=== PATIENT | male | born 1985 | race Caucasian/White ===

== ENCOUNTER 2017-09-15 18:47 | Emergency (ER) | payer OTHER ==
[2017-09-15] MEDS ORDERED: Ketorolac INJ* 30 MG/ML 1 ML VIAL IV PUSH ONE (20:46)
[2017-09-15 21:02] LABS: ABS Basophils 0 10^3/ul (0-0.2); ABS Eosinophils 0.1 10^3/ul (0-0.6); ABS Lymphocytes 1.6 10^3/ul (1.0-4.8); ABS Neutrophils 3.8 10^3/ul (1.5-7.7); ABS Nucleated RBC 0 10^3/ul; Hematocrit 39 % (42-52); Hemoglobin 13.7 g/dl (14.0-18.0); Lymphocyte % 24.6 % (25-47); Mean Corpuscular HGB Conc 35 g/dl (31-36); Mean Corpuscular Hemoglobin 29 pg (27-31); Mean Corpuscular Volume 84 fL (80-94); Mean Platelet Volume 7.5 um3 (7.4-10.4); Nucleated Red Blood Cells % 0.1; Platelet Count 218 10^3/ul (150-450); Red Blood Count 4.67 10^6/ul (4.0-5.4); Red Cell Distribution Width 14 % (10.5-15); White Blood Count 6.6 10^3/ul (3.5-10.8)
[2017-09-15 21:18] LABS: EGFR Non-African American 98.4 (>60)
[2017-09-15] MEDS ORDERED: Potassium Chlor TAB* 20 MEQ TAB.ER PO ONE (21:29)
--- NOTE | 2017-09-15 21:33 | RAD ---
HISTORY: Chest pain COMPARISONS: April 02, 2015 VIEWS: 1: frontal portable view of the chest at 9:23 PM FINDINGS: LINES AND TUBES: None. CARDIOMEDIASTINAL SILHOUETTE: The cardiomediastinal silhouette is normal for portable technique. PLEURA: The costophrenic angles are sharp. No pleural abnormalities are noted. LUNG PARENCHYMA: The lungs are clear. ABDOMEN: The upper abdomen is clear. There is no subphrenic gas. BONES AND SOFT TISSUES: No bone or soft tissue abnormalities are noted. IMPRESSION: NO ACTIVE CARDIOPULMONARY DISEASE.
[2017-09-15 21:58] VITALS: BP 126/65
--- NOTE | 2017-09-16 21:20 | ED ---
Akin Reyna Rebecca, scribed for Bruce Roman MD on 09/15/17 at 2043 . HPI Chest Pain - HPI Summary HPI Summary: Pt is a 31 y/o M who presents to ED c/o CP. Pain began last night after he had been laying down for about 30-45 minutes. Located in the sternal region, it gradually worsened, then began radiating into the left arm and right jaw. For about a half an hour, the pain was severe, ranked 10/10. He took 3 ASA. Pain gradually decreased and had been intermittent until 1100 today. Since 1100, the pain has been barely present, described more as a pressure, rated 1-2/10. Additionally c/o dizziness and diaphoresis last night when the pain began. Notes SOB recently. No prior similar episodes and has never had CP on exertion. No PMHx and no FHx [place]<55y/o. 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 - History of Current Complaint Chief Complaint: EDChestPainROMI Time Seen by Provider: 09/15/17 20:36 Hx Obtained From: Patient Onset/Duration: Started Days Ago - Last night Initial Severity: Severe - 10/10 Current Severity: Mild Pain Intensity: 2 Pain Scale Used: 0-10 Numeric Chest Pain Location: Mid Sternal Chest Pain Radiates: Yes Chest Pain Radiates To:: Arm - Left, Jaw - Right Character: Pressure/Squeezing Aggravating Factor(s): Nothing Alleviating Factor(s): Nothing Associated Signs and Symptoms: Positive: Dizziness, Shortness of Breath, Diaphoresis - Allergy/Home Medications Allergies/Adverse Reactions: Allergies Allergy/AdvReac Type Severity Reaction Status Date / Time No Known Allergies Allergy Verified 04/02/15 18:14 Home Medications: Home Medications NK [No Home Medications Reported] 09/15/17 [History Confirmed 09/15/17] PMH/Surg Hx/FS Hx/Imm Hx Endocrine/Hematology History: Denies: Hx Diabetes Cardiovascular History: Denies: Hx Hypertension - Immunization History Date of Tetanus Vaccine: UNKNOWN Infectious Disease History: No Infectious Disease History: Denies: Traveled Outside the US in Last 30 Days - Family History Known Family History: Positive: Diabetes - Social History Alcohol Use: None Substance Use Type: Reports: None Smoking Status (MU): Never Smoked Tobacco Review of Systems Positive: Skin Diaphoresis Positive: Chest Pain Positive: Shortness Of Breath Neurological: Other - Dizziness All Other Systems Reviewed And Are Negative: Yes Physical Exam - Summary Physical Exam Summary: VITAL SIGNS: Reviewed. GENERAL: Patient is a well-developed and nourished male who is lying comfortable in the stretcher. Patient is not in any acute respiratory distress. HEAD AND FACE: No signs of trauma. No ecchymosis, hematomas or skull depressions. No sinus tenderness. EYES: PERRLA, EOMI x 2, No injected conjunctiva, no nystagmus. EARS: Hearing grossly intact. Ear canals and tympanic membranes are within normal limits. MOUTH: Oropharynx within normal limits. NECK: Supple, trachea is midline, no adenopathy, no JVD, no carotid bruit, no c- spine tenderness, neck with full ROM. CHEST: Symmetric, no tenderness at palpation LUNGS: Clear to auscultation bilaterally. No wheezing or crackles. CVS: Regular rate and rhythm, S1 and S2 present, no murmurs or gallops appreciated. ABDOMEN: Soft, non-tender. No signs of distention. No rebound no guarding, and no masses palpated. Bowel sounds are normal. EXTREMITIES: FROM in all major joints, no edema, no cyanosis or clubbing. NEURO: Alert and oriented x 3. No acute neurological deficits. Speech is normal and follows commands. SKIN: Dry and warm Triage Information Reviewed: Yes Vital Signs On Initial Exam: Initial Vitals Temp Pulse Resp BP Pulse Ox 98.2 F 61 20 145/85 98 09/15/17 19:11 09/15/17 19:11 09/15/17 19:11 09/15/17 19:11 09/15/17 19:11 Vital Signs Reviewed: Yes Diagnostics - Vital Signs Vital Signs Temp Pulse Resp BP Pulse Ox 09/15/17 20:16 57 18 127/74 95 09/15/17 19:11 98.2 F 61 20 145/85 98 - Laboratory Lab Results: Lab Results 09/15/17 09/15/17 09/15/17 Range/Units 20:51 20:51 20:51 WBC 6.6 (3.5-10.8) 10^3/ul RBC 4.67 (4.0-5.4) 10^6/ul Hgb 13.7 L (14.0-18.0) g/dl Hct 39 L (42-52) % MCV 84 (80-94) fL MCH 29 (27-31) pg MCHC 35 (31-36) g/dl RDW 14 (10.5-15) % Plt Count 218 (150-450) 10^3/ul MPV 7.5 (7.4-10.4) um3 Neut % (Auto) 57.6 (38-83) % Lymph % (Auto) 24.6 L (25-47) % Wilcox % (Auto) 15.1 H (0-7) % Eos % (Auto) 2.0 (0-6) % Baso % (Auto) 0.7 (0-2) % Absolute Neuts (auto) 3.8 (1.5-7.7) 10^3/ul Absolute Lymphs (auto) 1.6 (1.0-4.8) 10^3/ul Absolute Monos (auto) 1.0 H (0-0.8) 10^3/ul Absolute Eos (auto) 0.1 (0-0.6) 10^3/ul Absolute Basos (auto) 0 (0-0.2) 10^3/ul Absolute Nucleated RBC 0 10^3/ul Nucleated RBC % 0.1 D-Dimer, Quantitative < 200 (Less Than 230) ng/mL Sodium 137 L (139-145) mmol/L Potassium 3.4 L (3.5-5.0) mmol/L Chloride 102 (101-111) mmol/L Carbon Dioxide 29 (22-32) mmol/L Anion Gap 6 (2-11) mmol/L BUN 14 (6-24) mg/dL Creatinine 0.89 (0.67-1.17) mg/dL Est GFR ( Amer) 126.6 (>60) Est GFR (Non-Af Amer) 98.4 (>60) BUN/Creatinine Ratio 15.7 (8-20) Glucose 97 (70-100) mg/dL Calcium 8.5 L (8.6-10.3) mg/dL Total Bilirubin 0.70 (0.2-1.0) mg/dL AST 19 (13-39) U/L ALT 15 (7-52) U/L Alkaline Phosphatase 63 (34-104) U/L Troponin I 0.03 (<0.04) ng/mL Total Protein 7.0 (6.4-8.9) g/dL Albumin 4.0 (3.2-5.2) g/dL Globulin 3.0 (2-4) g/dL Albumin/Globulin Ratio 1.3 (1-3) Result Diagrams: 09/15/17 20:51 09/15/17 20:51 Lab Statement: Any lab studies that have been ordered have been reviewed, and results considered in the medical decision making process. - Radiology CXR Xray Interpretation: No Acute Changes - NO ACTIVE CARDIOPULMONARY DISEASE. ED physician reviewed this report. Radiology Interpretation Completed By: Radiologist - EKG 2055 Cardiac Rate: Bradycardia - 53 bpm EKG Rhythm: Sinus Bradycardia EKG Interpretation: No ST elevations Re-Evaluation - Re-Evaluation First Eval Re-Evaluation Time: 21:35 Comment: Sleeping comfortably. Discussed results with the pt. Chest Pain Course/Dx - Course Assessment/Plan: This patient is a 31-year-old male who presents to the emergency department with a chief complaint of having chest pain and the side of the chest yesterday. Today he reports that he has a slight discomfort but no pain. Patient has no past medical history or family history of coronary artery disease. Patient has no comorbidities. Patient was given Toradol for the pain. Blood tests without any significant abnormalities except for a slight normocytic normochromic anemia. D-dimer is less than 200, sodium 137 and potassium 3.4. The patient was given potassium chloride. Chest x-ray impression negative an acute cardiopulmonary disease. The patient continues to be asymptomatic. Since the patient has no comorbidities or family history of coronary disease and the blood tests are negative the patient will be discharged home with follow-up with primary care physician. I discussed all the findings and test results with the patient. Patient was instructed to return to the emergency room immediately if any of the symptoms return or worsens. Plan of care was discussed with the patient and understands and agrees. All questions were answered at patient satisfaction. There were no further complaints or concerns. Lung exam before discharge: CTA B/L. Good air exchange. No wheezing or crackles heard. CVS: S1 and S2 present. No murmurs appreciated. Patient is alert and oriented x 3. Patient is hemodynamically stable. Patient will be discharged home with follow up PCP in the next 2-3 days - Chest Pain Differential Diagnosis/HQI/PQRI: Acute [place], ACS, Angina, CHF, Chest Wall, GI Disease, Lower Respiratory Infection - Diagnoses Provider Diagnoses: Chest pain, localized, Chest pain, atypical Discharge - Sign-Out/Discharge Documenting (check all that apply): Discharge/Admit/Transfer - Discharge - Discharge Plan Condition: Stable Disposition: HOME Patient Education Materials: Chest Pain (ED) Referrals: No Primary Care Phys,NOPCP [Primary Care Provider] - [facility] [place] PHYSICIAN REFERRAL [Outside] - 3 Days Additional Instructions: RETURN TO ED FOR ANY NEW OR WORSENING SYMPTOMS. The documentation as recorded by the Akin amezquita Rebecca accurately reflects the service I personally performed and the decisions made by Abel rosales Walter, MD.
== END 2017-09-15 21:58 | disposition home or self-care (01) ==
LOC: ED 18:47
DX: R07.89 Other chest pain (principal); D64.9 Anemia, unspecified
CPT/HCPCS: 36415; 71045; 80053; 84484; 85025; 85379; 93005; 96374; 99282; J1885

== ENCOUNTER 2018-02-06 20:18 | Observation (INO) | payer OTHER ==
[2018-02-06] MEDS ORDERED: Acetaminophen TAB* 325 MG PO ONE (20:26)
[2018-02-06] MEDS ORDERED: NS 0.9% 1000 ML* 1,000 ML IV ONE ×2 (20:26→22:40)
[2018-02-06 20:59] LABS: ABS Basophils 0 10^3/ul (0-0.2); ABS Eosinophils 0 10^3/ul (0-0.6); ABS Lymphocytes 0.5 10^3/ul (1.0-4.8); ABS Monocytes 0.8 10^3/ul (0-0.8); ABS Neutrophils 6.4 10^3/ul (1.5-7.7); ABS Nucleated RBC 0 10^3/ul; Eosinophil % 0 % (0-6); Hematocrit 46 % (42-52); Hemoglobin 16.2 g/dl (14.0-18.0); Lymphocyte % 6.8 % (25-47); Mean Corpuscular HGB Conc 35 g/dl (31-36); Mean Corpuscular Hemoglobin 29 pg (27-31); Mean Corpuscular Volume 84 fL (80-94); Mean Platelet Volume 7.7 um3 (7.4-10.4); Nucleated Red Blood Cells % 0.3; Platelet Count 205 10^3/ul (150-450); Red Blood Count 5.55 10^6/ul (4.00-5.40); Red Cell Distribution Width 13 % (10.5-15); White Blood Count 7.8 10^3/ul (3.5-10.8)
[2018-02-06 21:12] LABS: INR 1.11 (0.77-1.02)
--- NOTE | 2018-02-06 21:14 | ED ---
Neurological HPI - HPI Summary HPI Summary: A 32 y/o male accompanied by his JAMA presents to ED c/o s/p syncope and pain reaching 10/10 in severity. In the ED room, the patient has a pulse of 73 BPM, O2 saturation of 97% and blood pressure of 141/64. As per triage, "32 M JAMA for syncope and fall to the head. Was found unresponsive on the floor by a spouse. (unkown time) c/o of OCHOA, nausea. (3 days ago pt had piece of wood hit his head. It had nail on it). Fever noted in the ER". As per , the patient was hit on the top of his head by a piece of wood that had a avinash nail approximately 2-3 days ago. The nail did lopez the skin on top of his head. however, it was unknown of its depth (was bloody). Ever since the accident, the patient has been experiencing headaches intermittently and more than usual. She noted that after spending a normal day at the [employer], during departure he stated that he had a headache and felt that his heart was racing. Earlier in the day he took Ibuprofen as he slammed his finger in a door previously. She noted that after the mall trip, the patient was weak, fatigued and had a fever of 99.7. After leaving him at the house for some time, he was found on the kitchen floor passed out near the refrigerator. The patient was wet and he looked very pale and was diaphoretic. The timing of his syncope is unknown. Upon EMS arrival, the patient started to return to his senses. As per patient, he has nausea, diffuse myalgia and back pain, denies vomiting, abdominal pain, photophobia. No known medical conditions. PMHx of LOC. FHx of DM. No allergies to medications. Tetnus shot is up to date. Son currently has strep throat. - History of Current Complaint Chief Complaint: EDSyncope Stated Complaint: SYNCOPE Time Seen by Provider: 02/06/18 20:29 Hx Obtained From: Patient Onset/Duration: Sudden Onset, Started days ago, Still Present Timing: Constant Onset Severity: Severe - 10/10 Current Severity: Severe - 10/10 Number of Seizures: 0 Headache Location: Frontal Pain Intensity: 10 Pain Scale Used: 0-10 Numeric Syncope Timing: UNKNOWN Syncope Context: Unwitnessed, Unknown Aggravating: Nothing Alleviating: Nothing Associated Signs and Symptoms: Positive: Headache, Loss of Consciousness, Pain, Nausea/Vomiting - NAUSEA, Fever, Trauma: Recent - Allergy/Home Medications Allergies/Adverse Reactions: Allergies Allergy/AdvReac Type Severity Reaction Status Date / Time No Known Allergies Allergy Verified 04/02/15 18:14 PMH/Surg Hx/FS Hx/Imm Hx Endocrine/Hematology History: Denies: Hx Diabetes Cardiovascular History: Denies: Hx Hypertension - Surgical History Surgery Procedure, Year, and Place: Vasectomy, MCL and meniscus. - Immunization History Date of Tetanus Vaccine: UNKNOWN Infectious Disease History: No Infectious Disease History: Denies: Traveled Outside the US in Last 30 Days - Family History Known Family History: Positive: Diabetes - Social History Alcohol Use: None Substance Use Type: Reports: None Smoking Status (MU): Never Smoked Tobacco Review of Systems Positive: Fever, Fatigue, Skin Diaphoresis Negative: Photophobia Positive: Nausea. Negative: Abdominal Pain, Vomiting Positive: Myalgia, Other - POSITIVE: Back pain Neurological: Other - POSITIVE: Syncope/LOC Positive: Headache, Weakness All Other Systems Reviewed And Are Negative: Yes Physical Exam - Summary Physical Exam Summary: GENERAL: Patient is a well-developed and nourished male who is lying comfortable in the stretcher. Patient is not in any acute respiratory distress. HEAD AND FACE: Normocephalic EYES: PERRLA, EOMI x 2. EARS: Hearing grossly intact. MOUTH: Oropharynx within normal limits. NECK: Supple, trachea is midline, no adenopathy, no JVD, no carotid bruit. CHEST: Symmetric, no tenderness at palpation LUNGS: Clear to auscultation bilaterally. No wheezing or crackles. CVS: Regular rate and rhythm, S1 and S2 present, no murmurs or gallops appreciated. ABDOMEN: Soft, non-tender. Bowel sounds are normal. No abdominal abnormal pulsations. EXTREMITIES: Full ROM in all major joints, no edema, no cyanosis or clubbing. NEURO: Alert and oriented x 3. No acute neurological deficits. Speech is normal and follows commands. SKIN: Puncture wound in frontal lobe area, no surrounding erythema. GCS: 15 Triage Information Reviewed: Yes Vital Signs On Initial Exam: Initial Vitals Temp Pulse Resp BP Pulse Ox 102.8 F 78 18 127/76 99 02/06/18 20:20 02/06/18 20:20 02/06/18 20:20 02/06/18 20:20 02/06/18 20:20 Vital Signs Reviewed: Yes Diagnostics - Vital Signs Vital Signs Temp Pulse Resp BP Pulse Ox 02/06/18 20:55 72 19 141/64 97 02/06/18 20:25 73 14 152/72 98 02/06/18 20:24 78 17 98 02/06/18 20:20 102.8 F 78 18 127/76 99 - Laboratory Lab Results: Lab Results 02/06/18 Range/Units 20:50 WBC 7.8 (3.5-10.8) 10^3/ul RBC 5.55 H (4.00-5.40) 10^6/ul Hgb 16.2 (14.0-18.0) g/dl Hct 46 (42-52) % MCV 84 (80-94) fL MCH 29 (27-31) pg MCHC 35 (31-36) g/dl RDW 13 (10.5-15) % Plt Count 205 (150-450) 10^3/ul MPV 7.7 (7.4-10.4) um3 Neut % (Auto) 82.4 (38-83) % Lymph % (Auto) 6.8 L (25-47) % [place] % (Auto) 10.4 H (0-7) % Eos % (Auto) 0 (0-6) % Baso % (Auto) 0.4 (0-2) % Absolute Neuts (auto) 6.4 (1.5-7.7) 10^3/ul Absolute Lymphs (auto) 0.5 L (1.0-4.8) 10^3/ul Absolute Monos (auto) 0.8 (0-0.8) 10^3/ul Absolute Eos (auto) 0 (0-0.6) 10^3/ul Absolute Basos (auto) 0 (0-0.2) 10^3/ul Absolute Nucleated RBC 0 10^3/ul Nucleated RBC % 0.3 ESR Pending Result Diagrams: 02/06/18 20:50 02/06/18 20:50 Lab Statement: Any lab studies that have been ordered have been reviewed, and results considered in the medical decision making process. - Radiology CXR Radiology Interpretation Completed By: ED Physician - NO ACUTE PROCESS. PENDING OFFICIAL REPORT. - CT BRAIN CT CT Interpretation Completed By: Radiologist - No intracranial bleed, suspicious mass, or mass effect. Ventricles appear unremarkable. ED PHYSICIAN REVIEWED THIS RADIOLOGY REPORT. - EKG 2015 Cardiac Rate: NL - 78 BPM EKG Rhythm: Sinus Rhythm EKG Interpretation: intraventricular conduction delay Re-Evaluation - Re-Evaluation First Eval Re-Evaluation Time: 20:20 Comment: Lumbar Puncture Second Eval Re-Evaluation Time: 20:46 Comment: LP procedure was adverted because the patient had vasovagal syncope. Course/Dx - Course Course Of Treatment: A 32 y/o male accompanied by his JAMA presents to ED c /o s/p syncope and headache reaching 10/10 in severity.Upon arrival, pt found to be febrile. Work-up including CT head, CXR and UA unremarkable. Given OCHOA in the context of fevers, there is concern for meniningitis. Patient consented for LP. In the process of LP, patient passed out and became unresponsive, ABC alert triggered by nurses which was quickly cancelled as patient regained consciousness. Upon further investigation, reports similar history where he passes out secondary to pain. Patient's HR has been bradycardic after he was afebrile, however, stated that this is normal because patient is a runner. Case discussed with hospitalist. I discussed results and plan of care with patient and his at bedside . Patient was covered with braoad spectrum antibiotic for possible meningitis. Patient stable upon admission - Diagnoses Provider Diagnoses: Syncope, Fever, Headache - Physician Notifications Discussed Care Of Patient With: Inocencia Harley Time Discussed With Above Provider: 00:03 Instructed by Provider To: Other - Accepts patient for admission. - Critical Care Time Critical Care Time: 30-74 min - Patient had syncope. Discharge - Sign-Out/Discharge Documenting (check all that apply): Patient Departure - ADMIT, Sign-Out Patient Signing out patient TO: Inocencia Harley Receiving patient FROM: Daryl Fuentes - Discharge Plan Condition: Stable Disposition: ADMITTED TO [facility] - Billing Disposition and Condition Condition: STABLE Disposition: Admitted to [facility] - Attestation Statements Document Initiated by Scribe: Yes Documenting Scribe: Venkata Sanabria Provider For Whom Scribe is Documenting (Include Credential): Daryl Fuentes MD Scribe Attestation: IVenkata, scribed for Daryl Fuentes MD on 02/07/18 at 0122. Scribe Documentation Reviewed: Yes Provider Attestation: The documentation as recorded by the scribeVenkata accurately reflects the service I personally performed and the decisions made by me, Daryl Fuentes MD
[2018-02-06 21:17] LABS: EGFR Non-African American 79.1 (>60)
--- NOTE | 2018-02-06 21:29 | RAD ---
EXAM: CT Head Without Intravenous Contrast CLINICAL HISTORY: 32 years old, male; Signs and symptoms; Other: Syncope and fall to the head; Additional info: Injury. Syncope and fall to the head. Was found unresponsive on the floor by a spouse. (unkown time) C/O of OCHOA, nausea. (3 days ago pt had piece of wood hit his head. It had nail on it). Fever noted in the er TECHNIQUE: Axial computed tomography images of the head/brain without intravenous contrast. All CT scans at this facility use at least one of these dose optimization techniques: automated exposure control; mA and/or kV adjustment per patient size (includes targeted exams where dose is matched to clinical indication); or iterative reconstruction. COMPARISON: No relevant prior studies available. FINDINGS: Brain: Unremarkable. No hemorrhage. No significant white matter disease. No edema. Ventricles: No intracranial bleed, suspicious mass, or mass effect. Ventricles appear unremarkable. Bones/joints: Unremarkable. No acute fracture. Soft tissues: Unremarkable. Sinuses: Unremarkable as visualized. No acute sinusitis. Mastoid air cells: Unremarkable as visualized. No mastoid effusion. IMPRESSION: No intracranial bleed, suspicious mass, or mass effect. Ventricles appear unremarkable. To contact [facility] with a general question: Operations Center - [phone] For direct physician to physician contact: Physician Hotline - [phone] [facility] ([facility] Facility ID #[id number])
[2018-02-06 21:44] LABS: Urine Appearance Clear; Urine Blood Negative (Negative); Urine Color Amber; Urine Ketones Negative (Negative); Urine Protein 1+(30 mg/dL) (Negative); Urine Red Blood Cell Absent (Absent); Urine Specific Gravity 1.023 (1.010-1.030); Urine Urobilinogen Negative (Negative); Urine White Blood Cell Trace(0-5/hpf) (Absent)
[2018-02-06] MEDS ORDERED: Ketorolac INJ* 30 MG/ML 1 ML VIAL IV PUSH ONE (21:45)
[2018-02-06] MEDS ORDERED: Lidocaine 2% EPI 1:200000 MPF*10-20 ML VIAL ONE (22:06)
[2018-02-06] MEDS ORDERED: Ondansetron INJ* 2 MG/ML VIAL ONE (22:35)
[2018-02-06] MEDS ORDERED: Ondansetron INJ* 2 MG/ML VIAL IV ONE (22:39)
[2018-02-06] MEDS ORDERED: cefTRIAXone(*) 1 GM ADVAN/BAG ONE (22:41)
[2018-02-06] MEDS ORDERED: Vancomycin(*) 1,000 MG BAG/ADDV IVPB ONE (22:42)
[2018-02-06] MEDS ORDERED: Dexamethasone IV* 4 MG/ML 1 ML (4 MG) ONE (22:52)
[2018-02-06] MEDS ORDERED: Dexamethasone IV* 4 MG/ML 1 ML (4 MG) IV SLOW PU ONE (22:55)
[2018-02-06] MEDS ORDERED: Vancomycin(*) 1,000 MG in NS 0.9% 250 ML* 250 ML IVPB ONE (23:08)
[2018-02-06] MEDS ORDERED: cefTRIAXone(*) 1 GM in NS 0.9% 50 ML* 50 ML IVPB ONE (23:09)
[2018-02-07] MEDS ORDERED: Acetaminophen TAB* 325 MG PO PRN (00:21)
[2018-02-07] MEDS ORDERED: Ondansetron INJ* 2 MG/ML VIAL IV PRN (00:21)
[2018-02-07] MEDS ORDERED: Vancomycin per Pharmacy* NOTE FOLLOW UP PRN (00:27)
[2018-02-07] MEDS ORDERED: cefTRIAXone(*) 1 GM ADVAN/BAG IV STA (00:38)
[2018-02-07] MEDS ORDERED: NS 0.9% 1000 ML* 1,000 ML IV ONE (00:46)
[2018-02-07] MEDS ORDERED: Vancomycin(*) 0 MG in NS 0.9% 250 ML* 250 ML IVPB SCH (01:00)
[2018-02-07] MEDS ORDERED: cefTRIAXone(*) 1 GM in NS 0.9% 50 ML* 50 ML IVPB ONE (01:10)
[2018-02-07] MEDS: NS 0.9% 1000 ML* 1,000 ML IV SCH ×2 (03:17→15:12)
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
[2018-02-07] MEDS ORDERED: Magnesium Sulfate 2 GM IV* 2 GM/50 ML BAG IVPB ONE (05:25)
[2018-02-07 06:00] LABS: ABS Basophils 0 10^3/ul (0-0.2); ABS Eosinophils 0 10^3/ul (0-0.6); ABS Lymphocytes 0.5 10^3/ul (1.0-4.8); ABS Monocytes 0.2 10^3/ul (0-0.8); ABS Neutrophils 4.5 10^3/ul (1.5-7.7); ABS Nucleated RBC 0 10^3/ul; Eosinophil % 0 % (0-6); Hematocrit 42 % (42-52); Hemoglobin 14.6 g/dl (14.0-18.0); Lymphocyte % 9.9 % (25-47); Mean Corpuscular HGB Conc 35 g/dl (31-36); Mean Corpuscular Hemoglobin 29 pg (27-31); Mean Corpuscular Volume 84 fL (80-94); Mean Platelet Volume 7.8 um3 (7.4-10.4); Nucleated Red Blood Cells % 0.6; Platelet Count 184 10^3/ul (150-450); Red Blood Count 4.99 10^6/ul (4.00-5.40); Red Cell Distribution Width 13 % (10.5-15); White Blood Count 5.2 10^3/ul (3.5-10.8)
[2018-02-07] MEDS ORDERED: Vancomycin(*) 1,250 MG in NS 0.9% 250 ML* 250 ML IVPB SCH (06:00)
[2018-02-07 06:07] LABS: INR 1.08 (0.77-1.02)
[2018-02-07 06:22] LABS: EGFR Non-African American 104.6 (>60)
--- NOTE | 2018-02-07 08:10 | RAD ---
Indication: Fever. Single frontal view of the chest performed at 2120 hours was reviewed. Comparison is made with previous exam dated September 15, 2017. No mediastinal shift is noted. Heart is of normal size and configuration. Lung soliman appear clear. IMPRESSION: NO ACTIVE CARDIOPULMONARY DISEASE IS NOTED. R0
--- NOTE | 2018-02-07 08:47 | PN ---
Subjective Date of Service: 02/07/18 Interval History: Patient reports he feels better today reporting his OCHOA has resolved, no fever or body aches. He reports his appetite is better today. He denies neck pain/ stiffness. Denies sensitivity to light. Denies cough/sob. No runny nose. He reports he got OOB to the bathroom this morning and felt dizzy and per nursing staff reports HR 32 at that time. Patient was found to have good mentation and SBP 112 but reported he felt dizzy. He reports 1 prior syncopal episode in the setting of pain after a surgical procedure. He denies hx of seizure. He reports the episode yesterday at home was unwitnessed. He was making a sandwich and the next thing he knew he was on the ground.. His reports she came home and found him unconscious on the ground and when he came to he was very confused when he woke up. The syncopal episode in the ER was after he states he had significant pain from the attempt lumbar puncture in which he states he experienced "extreme pain". The patient also reports 6 mo hx of bilateral hand and feet numbness intermittently when he is resting only and reports he has been experiencing this daily. Objective Active Medications: Acetaminophen (Tylenol Tab*) 650 mg PO Q4H PRN PRN Reason: FEVER/PAIN Sodium Chloride (Ns 0.9% 1000 Ml*) 1,000 mls @ 125 mls/hr IV PER RATE [facility] Last Admin: 02/07/18 03:17 Dose: 125 mls/hr Ceftriaxone Sodium 2 gm/ (Sodium Chloride) 100 mls @ 200 mls/hr IVPB Q12H [facility] Vancomycin HCl 1,250 mg/ (Sodium Chloride) 250 mls @ 166.667 mls/hr IVPB Q8H [facility] Last Admin: 02/07/18 05:21 Dose: 166.667 mls/hr Ondansetron HCl (Zofran Inj*) 4 mg IV Q6H PRN PRN Reason: NAUSEA Pharmacy Consult (Vancomycin Per Pharmacy*) 1 note FOLLOW UP . PRN PRN Reason: PER PROTOCOL Pharmacy Profile Note (Vancomycin Trough Check) 1 note FOLLOW UP 0530 ONE Stop: 02/08/18 05:31 Vital Signs - 8 hr 02/07/18 02/07/18 02/07/18 01:05 01:24 03:12 Temperature 98.6 F 97.6 F Pulse Rate 78 44 43 Respiratory 18 16 18 Rate Blood Pressure 110/51 127/50 118/50 (mmHg) O2 Sat by Pulse 98 98 100 Oximetry 02/07/18 03:15 Temperature Pulse Rate 47 Respiratory Rate Blood Pressure 131/70 (mmHg) O2 Sat by Pulse Oximetry Oxygen Devices in Use Now: None Appearance: A+O x3 well developed 32 yo male in NAD - appears nontoxic Eyes: No Scleral Icterus, PERRLA Ears/Nose/Mouth/Throat: NL Teeth, Lips, Gums, Mucous Membranes Moist Neck: NL Appearance and Movements; NL JVP, Trachea Midline Respiratory: Symmetrical Chest Expansion and Respiratory Effort, Clear to Auscultation Cardiovascular: NL Sounds; No Murmurs; No JVD, RRR, No Edema Abdominal: NL Sounds; No Tenderness; No Distention Extremities: No Edema, No Clubbing, Cyanosis Skin: No Rash or Ulcers, No Nodules or Sclerosis Neurological: Alert and Oriented x 3, NL Sensation, NL Gait, NL Muscle Strength and Tone, - - sensation intact in peripheral extremities Lines/Tubes/Other Access: Clean, Dry and Intact Peripheral IV Nutrition: Taking PO's Result Diagrams: 02/07/18 05:43 02/07/18 05:43 Additional Lab and Data: Lab Results 02/06/18 Range/Units 20:50 WBC 7.8 (3.5-10.8) 10^3/ul RBC 5.55 H (4.00-5.40) 10^6/ul Hgb 16.2 (14.0-18.0) g/dl Hct 46 (42-52) % MCV 84 (80-94) fL MCH 29 (27-31) pg MCHC 35 (31-36) g/dl RDW 13 (10.5-15) % Plt Count 205 (150-450) 10^3/ul MPV 7.7 (7.4-10.4) um3 Neut % (Auto) 82.4 (38-83) % Lymph % (Auto) 6.8 L (25-47) % [place] % (Auto) 10.4 H (0-7) % Eos % (Auto) 0 (0-6) % Baso % (Auto) 0.4 (0-2) % Absolute Neuts (auto) 6.4 (1.5-7.7) 10^3/ul Absolute Lymphs (auto) 0.5 L (1.0-4.8) 10^3/ul Absolute Monos (auto) 0.8 (0-0.8) 10^3/ul Absolute Eos (auto) 0 (0-0.6) 10^3/ul Absolute Basos (auto) 0 (0-0.2) 10^3/ul Absolute Nucleated RBC 0 10^3/ul Nucleated RBC % 0.3 ESR Pending Microbiology and Other Data: Microbiology 02/06/18 21:20 Influenza Types A,B Antigen - Final Nasal Specimen received for Influenza A/B Molecular testing 02/06/18 21:22 Group A Streptococcus Rapid Screen - Final Throat Specimen received for Rapid Strep A Molecular testing Assess/Plan/Problems-Billing Assessment: Mr. Valdes is 32 yo male with no significant PMH who presented after a syncopal episode with a report of fever/chills/body aches starting 1 day prior. - Patient Problems (1) Syncope Comment: Unclear etiology. Hx of prior syncopal episode in the setting of pain. All syncopal episodes are situtational with an explaination - such as pain, or possible dehydration - however i am concerned about the syncopal episode at home in which it sounds like maybe he had postictal symptoms. During syncopal episode yesterday nursing staff in ER reported he was given 10 seconds of chest compressions for the ECG HR monitor going to 0- it does not appear a pulse was checked and he came out of it quickly. HR noted to be bradycardiac on monitor 32 -70's. Pt reports resting HR at baseline 50. -No hx of seizure in the past. Orthostatic vs negative Will obtain EEG, and echo. continue to monitor on tele. Supervised ambulation with staff. Seizure precautions. Cardiology and neurology to consult (2) Fever Comment: - unclear etiology. Afebrile today. - Appreciate ID consult. - continue Rocephin - await blood cx. (3) DVT prophylaxis Comment: encourage ambulation (4) Full code status Status and Disposition: OBV syncope. Plan for EEG/Echo. Home when medically stable.
[2018-02-07] MEDS: cefTRIAXone(*) 2 GM in NS 0.9% 100 ML* 100 ML IVPB SCH ×2 (10:46→22:36)
--- NOTE | 2018-02-07 11:43 | ECHO ---
Patient: JIL DE LA TORRE [facility] Rec#: [id number] : 1985 Date: 02/07/2018 Age: 32y Height: 175 cm / 68.9 in Weight: 83 kg / 182.9 lbs Sex: M BSA: 1.99 Room#: [facility] Admit Date#: 02/07/2018 Type: Inpatient Referring: Liss Aguirre Reading: Gigi Briscoe MD Supervisor Car Installations: Yumiko Sorenson RDCS,RDMS CC: Nick Kerr MD Transthoracic Echocardiogram Indication: Syncope BP: 131/70 HR: 40 Rhythm: Bradycardia Findings History: GERD Technical Comments: The study quality is fair. Left Ventricle: The left ventricular chamber size is normal. There is no left ventricular hypertrophy. Global left ventricular wall motion and contractility are within normal limits. The estimated ejection fraction is 55-60%. Normal left ventricular diastolic filling is observed. Left Atrium: The left atrial chamber size is normal. Right Ventricle: The right ventricular chamber size and systolic function are within normal limits. Right Atrium: The right atrial cavity size is normal. Aortic Valve: The aortic valve is trileaflet. There is no evidence of aortic valve thickening. Systolic excursion of the aortic valve is normal. There is a trace of aortic regurgitation. There is no evidence of aortic stenosis. Mitral Valve: The mitral valve leaflets appear normal. There is a trace of mitral regurgitation. There is no evidence of mitral stenosis. Tricuspid Valve: The tricuspid valve leaflets are normal. There is trace tricuspid regurgitation. Pulmonic Valve: The pulmonic valve appears normal. There is trace to mild pulmonic regurgitation. Pericardium: There is no significant pericardial effusion. Aorta: The aortic root appears normal. There is no dilatation of the aortic arch. Pulmonary Artery: The main pulmonary artery appears normal. Venous: The inferior vena cava appears normal in size. There is an approximate 50% respiratory change in the inferior vena cava dimension. Conclusions Global left ventricular wall motion and contractility are within normal limits. The estimated ejection fraction is 55-60%. There is no left ventricular hypertrophy. Systolic excursion of the aortic valve is normal. There is a trace of aortic regurgitation. There is a trace of mitral regurgitation. There is trace tricuspid regurgitation. There is no significant pericardial effusion. Measurements Name Value Normal Range RVIDd (AP) 2D 3.5 cm (0.9 - 2.6) RAd ISD 4CH 4.9 cm (3.4 - 4.9) RA (A4C)W 4 cm (2.9 - 4.6) IVSd (2D) 0.9 cm (0.6 - 1) LVPWd (2D) 0.9 cm (0.6 - 1) LVIDd (2D) 5.3 cm (3.6 - 5.4) LVIDs (2D) 3.5 cm - LV FS (2D) 34 % (25 - 45) Aortic Annulus 2.2 cm (1.4 - 2.6) Ao root diameter (2D) 2.7 cm (2.1 - 3.5) Ascending Ao 2.3 cm (2.1 - 3.4) Aortic arch 2.4 cm (1.8 - 3.4) LA dimension (AP) 2D 3.8 cm (2.3 - 3.8) LAd ISD 4CH 5 cm (2.9 - 5.3) LA ISD 4CH W 4 cm (2.5 - 4.5) Name Value Normal Range LA ESV BP (A/L) index 25 ml/m2 - Name Value Normal Range MV E-wave Vmax 1.1 m/sec - MV deceleration time 222 msec - MV A-wave Vmax 0.3 m/sec - MV E:A ratio 4.2 ratio - P. vein S-wave Vmax 0.6 m/sec - P. vein D-wave Vmax 0.9 m/sec - P. vein S:D Vmax ratio 0.6 ratio - P. vein A-wave duration 116 msec - LV septal e' Vmax 0.13 m/sec - LV lateral e' Vmax 0.16 m/sec - LV E:e' septal ratio 8.5 ratio - LV E:e' lateral ratio 7 ratio - Name Value Normal Range AV Vmax 1.4 m/sec - AV VTI 30 cm - AV peak gradient 8 mmHg - AV mean gradient 4 mmHg - LVOT Vmax 1.3 m/sec - LVOT VTI 24.5 cm - LVOT peak gradient 7 mmHg - LVOT mean gradient 3 mmHg - JORGE Vmax 1.4 m/sec - Name Value Normal Range IVC diameter 2.3 cm - Name Value Normal Range PV Vmax 1 m/sec - PV peak gradient 4 mmHg -
--- NOTE | 2018-02-07 16:06 | RAD ---
HISTORY: MRI clearance. COMPARISON: None. FINDINGS: Frontal and lateral views of the orbits. There is no radiopaque foreign body attributable to the orbits. The orbital rims are intact. The sinuses are clear. The zygomatic arches are normal. IMPRESSION: No radiopaque foreign body attributable to the orbits.
[2018-02-07] MEDS ORDERED: Gadoteridol* (CONTRAST) 279.3 MG/ML 10 ML IV ONE (16:13)
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
--- NOTE | 2018-02-07 17:03 | RAD ---
HISTORY: seizure COMPARISONS: Head CT dated February 06, 2018 TECHNIQUE: The following sequences were obtained of the head: Sagittal T1-weighted images, axial T2-weighted images, axial FLAIR images, axial susceptibility weighted images, axial T1-weighted images, coronal T1, T2 and FLAIR images through the mesial temporal lobes. Additionally, axial diffusion-weighted images were obtained with calculated apparent diffusion coefficients. Additionally, sagittal and axial T1 weighted images with thin section coronal T1-weighted images through the mesial temporal lobes were obtained after contrast enhancement with a gadolinium-based intravenous contrast agent. FINDINGS: HEMORRHAGE/INFARCT: There is no hemorrhage or acute infarct. MASSES/SHIFT: There is no mass or shift. EXTRA-AXIAL SPACES/MENINGES: There are no extra-axial fluid collections. SULCI AND VENTRICLES: The sulci and ventricles are normal in size and position for the patient's stated age. CEREBRUM: There are no focal brain parenchymal abnormalities. The mesial temporal lobes are symmetric in size, architecture, and signal intensity. The collateral white matter bundles are symmetric. The mamillary bodies and temporal horns of the lateral ventricles are symmetric in size. There is no appreciable cortical dysplasia or heterotopia. BRAINSTEM: There are no focal parenchymal abnormalities. CEREBELLUM: There are no focal parenchymal abnormalities. The cerebellar tonsils are normal in size and position. SELLA: The sella is normal. PINEAL: The pineal region is clear. CP ANGLE/TEMPORAL BONES: The labyrinthine structures are grossly normal. VESSELS: Normal flow-voids are noted within the visualized vertebral vasculature. DIFFUSION ABNORMALITIES: There are no diffusion abnormalities. PARANASAL SINUSES/MASTOIDS: The paranasal sinuses are clear. ORBITS: The orbits are unremarkable. BONES AND SOFT TISSUE: No bone or soft tissue abnormalities are noted. OTHER: There is no abnormal enhancement. IMPRESSION: UNREMARKABLE MRI OF THE BRAIN. THE MESIAL TEMPORAL LOBES ARE SYMMETRIC. THERE IS NO APPRECIABLE CORTICAL DYSPLASIA OR HETEROTOPIA.
[2018-02-07] MEDS ORDERED: Ibuprofen TAB* 800 MG PO ONE (19:39)
--- NOTE | 2018-02-07 21:01 | CONS ---
NEUROLOGY CONSULTATION: DATE OF CONSULT: 02/07/18 LOCATION: He is an inpatient in room 451. REFERRING PROVIDER: Liss Aguirre NP CHIEF COMPLAINT: Episode of loss of consciousness. HISTORY OF PRESENT ILLNESS: Michael Valdes is a 32-year-old right-handed man, who was in his usual state of health a couple of days prior to admission when he started to feel feverish and achy. The day of admission, he was feeling very achy and feverish and was trying to rest in bed and sleep. His went out of the house with her children to do some errands at about 2. He got up from sleeping on the couch and went to get something to eat and mixed up some Gatorade. He was not particularly hungry, but he felt like he should eat something. He was mixing up a powdered Gatorade drink and the next thing he knew he was on the floor, his son was calling his name. At first, he could not see him and when he could see, he was disoriented as to where he was. He was on the floor in the kitchen and the Gatorade was splashed all over him and on the floor. It took him several minutes to get reoriented to realize where he was. He was brought into the emergency department. In the emergency department , he had a fever and a lumbar puncture was attempted. He describes the lumbar puncture as very painful with pain going down both legs. He felt like he was going to pass out and then he did lose consciousness. Apparently, he had asystole or at least indeterminate pulse. He recovered within a few minutes and realized where he was and what had happened. He had one other episode of loss of consciousness years ago. He had a vasectomy and went home. His went out to get the analgesics that were prescribed and while she was out, his local anesthetic wore off. He was in extreme pain and stood up and felt like he was going to pass out and did. He was out for several minutes and came to and knew where he was. He was knocked out playing sports a couple of times as a youth. He never sought medical attention. He thinks the most he might have been unconsciousness was perhaps 5 minutes. There are no other episodes of loss of consciousness. There is no history of seizures, febrile seizures, or family history of seizures. There is no history of meningitis. He does not take any medications at home on a regular basis. PAST MEDICAL HISTORY: Notable for good health. He had a vasectomy with the syncopal episode described above. He has a history of gastroesophageal reflux and a hiatal hernia. MEDICATIONS: He is on no medications at home. Medications received here in the hospital include: 1. Ceftriaxone 2 g IV q.12 hours. 2. Zofran 4 mg IV q.6 hours as needed. 3. Tylenol p.r.n. fever. 4. He received 10 mg of dexamethasone IV in the emergency room and Toradol 30 mg IV. FAMILY HISTORY: Negative for epilepsy. REVIEW OF SYSTEMS: Negative for biting his tongue. He does not think he was incontinent because his undershorts were dry, but his pants were wet from the Gatorade. There is no history of heart disease, pulmonary, renal, GI, , rheumatological, psychiatric, or other neurological disorders. He does have a history of episodic migraine without aura, but they are very infrequent and he has not had any recently. PHYSICAL EXAM: He is well nourished and well hydrated. Temperature most recently 98.9, blood pressure 124/66, heart rate as low as 38. Respiratory rate is 18 and oxygen saturation is 100% on room air. Head is atraumatic. Neck is supple, but he feels a little bit of occipital tightness when he flexes it fully, which he can complete fully. There is no cervical adenopathy. Heart is in a regular rate and rhythm without murmurs heard. Lungs are clear. There are no cervical bruits. Oral mucosa is moist and atraumatic. Neurological Exam: Pupils react equally from 4 down to 3 mm. Funduscopic exam reveals sharp discs bilaterally. Eye movements are normal and visual soliman are full to confrontation. There is no ptosis. Facial musculature is symmetric. Facial sensation to temperature and light touch is intact. Hearing is intact and neck muscle bulk and strength is normal. Motor exam reveals normal tone and strength in the limbs. There is no drift of any limb. There is no rest tremor. Homvkm-mv-[id number] maneuver is normal. Finger taps are normal in the hands. Sensory exam in the limbs to light touch and pin and vibration are all normal. Reflexes are brisk and symmetric and plantar responses are flexor bilaterally. He is alert and oriented and a good detailed historian. Memory is intact other than as described in the history of present illness. Language is fluent. He has adequate attention, concentration, and fund of knowledge. DIAGNOSTIC STUDIES/LAB DATA: Notable for a CT of the brain interpreted as normal. I reviewed the images and I agree. Chest x-ray is interpreted as normal. CBC is normal, white blood cell count 5.2. Sedimentation rate yesterday was 21. INR is upper range of normal at 1.08, PTT normal. Chemistries notable for a glucose of 200 this morning, it was 109 yesterday when he came in. His creatine kinase was normal yesterday at presentation at 152 and lactic acid was within normal limits. CRP is elevated at 63.5. TSH normal at 0.61. Lassen screen, influenza A and influenza B, rapid group A strep all negative serologies. IMPRESSION AND PLAN: Two syncopal episodes provoked by pain. The one episode that brought him into the hospital, however, is less clearly syncopal. He was ill and his added that he was extremely pale and white when they first found him on the floor. However, he was confused when he came to and was on the floor for apparently a fairly extended period of time, although the exact time is unknown. He had an EEG earlier today, which I reviewed and which looks normal. I recommend getting an MRI of the brain with and without contrast to look for any lesions, which might predispose to seizures. If that is normal and he does not have any more events, then I would not recommend anticonvulsants, but rather presume that this was a prolonged syncopal episode in the setting of a viral illness and dehydration. I will continue to follow with him and check back in after his MRI is done. [id number]/[facility] #: [id number] [facility]
--- NOTE | 2018-02-07 21:51 | CONS ---
CC: Dr. Nick Kerr * CARDIOLOGY CONSULTATION: DATE OF CONSULT: 02/07/18 INDICATION FOR CONSULTATION: Syncope. HISTORY OF PRESENT ILLNESS: The patient is a 41-year-old male who came to the emergency room yesterday after having a syncopal episode at home. The patient went to the mall in [place]. He came back with his family. He was feeling poorly. He said he had aches all over. He had some mild fevers. He was feeling generally weak and fatigued. The patient states that he was at the table. He got up to get some food. He was going to make a sandwich when he was feeling kind of fatigued and sweaty and woke up on the floor. He said his son woke him up and he realized that he had fainted. He was unclear how long he had been out. He was clearly confused when he woke up per his 's statement. The patient was brought to the emergency room. Initial EKG was unremarkable except for bradycardia, then the patient underwent a lumbar puncture because of his fevers and there was some concern about viral meningitis. While he was getting the procedure, he remembers getting extreme pain in his back and then passed out again. The patient did have a period of asystole at that time. In speaking with the patient, he had 1 other episode of syncope. He had just undergone a vasectomy years ago when he was at home and he was having significant pain and stood up to go to the bathroom and had a syncopal episode. PAST MEDICAL HISTORY: Significant for gastroesophageal reflux disease. PAST SURGICAL HISTORY: Vasectomy, knee arthroscopy. HOME MEDICATIONS: None. ALLERGIES: None. FAMILY HISTORY: No family history of early coronary artery disease or cardiac arrhythmias. SOCIAL HISTORY: Denies tobacco or alcohol use. He exercises regularly. His is his surrogate decision maker. REVIEW OF SYSTEMS: Positive for fevers and chills. Negative for changes in bowel or bladder habits. Negative for change in weight. Other 12-point review is unremarkable. PHYSICAL EXAM: Height is 5 feet 9 inches, weight is 183 pounds, temperature 98.9, heart rate is 40, blood pressure 124/66, respiratory rate is 18, oxygen saturation 99% on room air. Sclerae anicteric. Oropharynx is pink without erythema. Carotids are 2+ without bruits. JVD is normal. Thyroid is normal. Cardiac Exam: S1, S2 without any murmurs, rubs or gallops. Lungs are clear to auscultation bilaterally. There is no dullness to percussion. Abdomen is soft , nontender, nondistended with normoactive bowel sounds. Extremities show no edema. He has 2+ pulses throughout. The patient is awake, alert and oriented. DIAGNOSTIC STUDIES/LAB DATA: Laboratory studies are unremarkable. EKG is normal except for sinus bradycardia. His head CT was unremarkable. His echocardiogram today demonstrated normal LV size and systolic function and no significant valvular abnormalities. IMPRESSION: This is a 32-year-old gentleman who had a history of syncopal episode, who had a syncopal episode at home. Overall, his episode at home recently was essentially an unprovoked event and he had a significant confusion afterwards possibly consistent with a postictal state. His episodes of syncope after his vasectomy and during the lumbar puncture are clearly provoked events consistent with vasovagal syncope. At this point, I do not think any other cardiac workup is necessary. I think his bradycardia is quite benign. I will be glad to see the patient in followup as an outpatient if further issues arise. [id number]/[facility] #: [id number] MTDD
--- NOTE | 2018-02-08 04:50 | EEG ---
ELECTROENCEPHALOGRAPHY: DATE OF STUDY: 02/07/18 REFERRED PROVIDER: Liss Aguirre NP LOCATION: He is an inpatient in room 451. CLINICAL PROBLEM: Episodes of loss of consciousness including the day prior to this recording. The patient is on Rocephin and vancomycin. REPORT: This 16-channel EEG is remarkable for background rhythms consisting of a posterior alpha rhythm at about 8.5 to 9 cycles per second, which is symmetric. Movement artifact and sweat artifact is noted intermittently throughout the recording. Activation procedures are not attempted. The patient drowses with bitemporal and central slowing, but does not follow sleep. There are no focal, lateralized, or epileptiform abnormalities. CLINICAL IMPRESSION: Normal awake and drowsy EEG. [id number]/[facility] #: [id number] [facility]
[2018-02-08] MEDS ORDERED: Vancomycin Trough Check NOTE FOLLOW UP ONE (05:30)
[2018-02-08 06:18] LABS: ABS Basophils 0 10^3/ul (0-0.2); ABS Eosinophils 0.1 10^3/ul (0-0.6); ABS Lymphocytes 1.6 10^3/ul (1.0-4.8); ABS Neutrophils 6.7 10^3/ul (1.5-7.7); ABS Nucleated RBC 0 10^3/ul; Eosinophil % 0.8 % (0-6); Hematocrit 37 % (42-52); Hemoglobin 12.9 g/dl (14.0-18.0); Lymphocyte % 17.2 % (25-47); Mean Corpuscular HGB Conc 35 g/dl (31-36); Mean Corpuscular Hemoglobin 29 pg (27-31); Mean Corpuscular Volume 84 fL (80-94); Mean Platelet Volume 7.8 um3 (7.4-10.4); Nucleated Red Blood Cells % 0; Platelet Count 158 10^3/ul (150-450); Red Blood Count 4.45 10^6/ul (4.00-5.40); Red Cell Distribution Width 14 % (10.5-15); White Blood Count 9.4 10^3/ul (3.5-10.8)
[2018-02-08] MEDS ORDERED: Magnesium Sulfate 2 GM IV* 2 GM/50 ML BAG IVPB ONE (07:10)
[2018-02-08] MEDS: cefTRIAXone(*) 2 GM in NS 0.9% 100 ML* 100 ML IVPB SCH (11:06)
--- NOTE | 2018-02-08 12:27 | PN ---
Subjective Date of Service: 02/08/18 Interval History: Patient reports he is feeling better. He ambulated around the unit and felt at his baseline. He does report he went from sitting to standing and had mild lightheadedness. No further fever or chills. No cough. Denies abdominal pain. No N/V/D. Feels ready to go home. Denies numbness, tingling, weakness. Objective Active Medications: Acetaminophen (Tylenol Tab*) 650 mg PO Q4H PRN PRN Reason: FEVER/PAIN Last Admin: 02/07/18 15:10 Dose: 650 mg Sodium Chloride (Ns 0.9% 1000 Ml*) 1,000 mls @ 125 mls/hr IV PER RATE RAMIRO Last Admin: 02/07/18 15:12 Dose: 125 mls/hr Ceftriaxone Sodium 2 gm/ (Sodium Chloride) 100 mls @ 200 mls/hr IVPB Q12H RAMIRO Last Admin: 02/08/18 11:06 Dose: 200 mls/hr Ondansetron HCl (Zofran Inj*) 4 mg IV Q6H PRN PRN Reason: NAUSEA Vital Signs - 8 hr 02/08/18 02/08/18 02/08/18 06:09 06:15 07:35 Temperature Pulse Rate 40 Respiratory 18 Rate Blood Pressure 120/70 120/70 (mmHg) O2 Sat by Pulse Oximetry 02/08/18 02/08/18 07:52 11:22 Temperature 97.5 F 97.7 F Pulse Rate 40 47 Respiratory 18 18 Rate Blood Pressure 118/66 127/62 (mmHg) O2 Sat by Pulse 100 100 Oximetry Oxygen Devices in Use Now: None Appearance: well developed 32 yo male A+Ox3 in NAD Eyes: No Scleral Icterus, PERRLA Ears/Nose/Mouth/Throat: NL Teeth, Lips, Gums, Mucous Membranes Moist Neck: NL Appearance and Movements; NL JVP Respiratory: Symmetrical Chest Expansion and Respiratory Effort, Clear to Auscultation Cardiovascular: NL Sounds; No Murmurs; No JVD, RRR, No Edema Abdominal: NL Sounds; No Tenderness; No Distention Extremities: No Edema, No Clubbing, Cyanosis Skin: No Rash or Ulcers, No Nodules or Sclerosis Neurological: Alert and Oriented x 3, NL Sensation, NL Gait, NL Muscle Strength and Tone Lines/Tubes/Other Access: Clean, Dry and Intact Peripheral IV Nutrition: Taking PO's Result Diagrams: 02/08/18 06:08 02/08/18 06:08 Additional Lab and Data: Lab Results 02/06/18 Range/Units 20:50 WBC 7.8 (3.5-10.8) 10^3/ul RBC 5.55 H (4.00-5.40) 10^6/ul Hgb 16.2 (14.0-18.0) g/dl Hct 46 (42-52) % MCV 84 (80-94) fL MCH 29 (27-31) pg MCHC 35 (31-36) g/dl RDW 13 (10.5-15) % Plt Count 205 (150-450) 10^3/ul MPV 7.7 (7.4-10.4) um3 Neut % (Auto) 82.4 (38-83) % Lymph % (Auto) 6.8 L (25-47) % Cabell % (Auto) 10.4 H (0-7) % Eos % (Auto) 0 (0-6) % Baso % (Auto) 0.4 (0-2) % Absolute Neuts (auto) 6.4 (1.5-7.7) 10^3/ul Absolute Lymphs (auto) 0.5 L (1.0-4.8) 10^3/ul Absolute Monos (auto) 0.8 (0-0.8) 10^3/ul Absolute Eos (auto) 0 (0-0.6) 10^3/ul Absolute Basos (auto) 0 (0-0.2) 10^3/ul Absolute Nucleated RBC 0 10^3/ul Nucleated RBC % 0.3 ESR Pending Microbiology and Other Data: Microbiology 02/06/18 21:20 Influenza Types A,B Antigen - Final Nasal Specimen received for Influenza A/B Molecular testing 02/06/18 21:22 Group A Streptococcus Rapid Screen - Final Throat Specimen received for Rapid Strep A Molecular testing Assess/Plan/Problems-Billing Assessment: Mr. Valdes is 32 yo male with no significant PMH who presented after a syncopal episode with a report of fever/chills/body aches starting 1 day prior. - Patient Problems (1) Syncope Comment: No further episodes. Unclear etiology- suspect in the setting of viral illness, dehydration and pain. Hx of prior syncopal episode in the setting of pain years ago. Syncopal episodes are situtational with an explaination - such as pain, or possible dehydration - however i am concerned about the syncopal episode at home in which it sounds like maybe he had postictal symptoms and not so directly obviously a vasovagal epsiode. However he was feverish and could be 2nd to dehydration. During syncopal episode in ER nursing staff in ER reported he was given 10 seconds of chest compressions for the ECG HR monitor going to 0 - it does not appear a pulse was checked and he came out of it quickly and this is suspected that he vasovagal. HR noted to be bradycardiac on monitor 32-70's. Pt reports resting HR at baseline 50. -No hx of seizure in the past. Orthostatic vs negative EEG negative Echo unremarkable Seizure precautions. Cardiology - appreciate consult - is not concerned about bradycardia, suspects syncope is secondary to vasovagal. Does not recommend further cardiac work-up. Neurology appreciate consult - MRI brain 02/07 - unremarkable. No recommendation for anti-seizure meds at this point or recommendation for activity restrictions (2) Fever Comment: - unclear etiology. Afebrile since admission. - Urine, strep, influenza, mono, HIV negative - Blood cx NTD - plan to stop abx - Appreciate ID consult. Lyme and [place] labs pending (3) DVT prophylaxis Comment: encourage ambulation (4) Full code status Status and Disposition: OBV syncope. Plan for DC home today
--- NOTE | 2018-02-08 14:11 | PN ---
Progress Note - Progress Note Date of Service: 02/08/18 SOAP: Subjective: CC: fever HPI: 32 year old man with fever, myalgia and then syncope at home. No syncope or presyncope here. Fever and myalgia are resolved. Feels back to his usual self. HR 40's at rest, 50's-60's while walking. Objective: Vital Signs Temp 36.5 C 02/08/18 11:22 Pulse 47 02/08/18 11:22 Resp 18 02/08/18 11:22 BP 127/62 02/08/18 11:22 Pulse Ox 100 02/08/18 11:22 Intake & Output 02/07/18 02/08/18 02/08/18 18:59 06:59 18:59 Intake Total 1200 3055 226 Output Total 425 600 Balance 1200 2630 -374 Weight 183 lb 6.4 oz Intake: IV Fluids 1985 60 IVPB 110 166 Oral 1200 960 Output: Urine 425 600 Other: # Bowel Movements 0 Gen:awake, no distress HEENT: no thrush Heart:Regular, bradycardic Lungs:CTA BL Abd:+BS NTND soft Skin: no rash Laboratory Results - last 24 hr 02/07/18 02/08/18 02/08/18 05:43 06:08 06:08 WBC 9.4 RBC 4.45 Hgb 12.9 L Hct 37 L MCV 84 MCH 29 MCHC 35 RDW 14 Plt Count 158 MPV 7.8 Neut % (Auto) 71.1 Lymph % (Auto) 17.2 L Lawrence % (Auto) 10.5 H Eos % (Auto) 0.8 Baso % (Auto) 0.4 Absolute Neuts (auto) 6.7 Absolute Lymphs (auto) 1.6 Absolute Monos (auto) 1.0 H Absolute Eos (auto) 0.1 Absolute Basos (auto) 0 Absolute Nucleated RBC 0 Nucleated RBC % 0 Sodium 140 Potassium 3.8 Chloride 110 Carbon Dioxide 24 Anion Gap 6 BUN 13 Creatinine 0.71 Est GFR ( Amer) 153.7 Est GFR (Non-Af Amer) 127.0 BUN/Creatinine Ratio 18.3 Glucose 106 H Calcium 7.9 L Magnesium 1.7 L Total Bilirubin 0.30 AST 20 ALT 26 Alkaline Phosphatase 54 Total Protein 5.9 L Albumin 3.3 Globulin 2.6 Albumin/Globulin Ratio 1.3 HIV 1&2 Antibody Nonreactive Microbiology 02/06/18 20:51 Aerobic Blood Culture - Preliminary Blood Venous No Growth Day 1 Anaerobic Blood Culture - Preliminary No Growth Day 1 02/06/18 20:51 Aerobic Blood Culture - Preliminary Blood Venous No Growth Day 1 Anaerobic Blood Culture - Preliminary No Growth Day 1 02/06/18 21:34 Urine Culture - Final Urine No Growth (<1,000 CFU/mL) Assessment: 1. fever and myalgia resolved, suspect viral illness, no signs or symptoms of ongoing infection 2. sinus bradycardia Plan: 1. DC antibiotics
[2018-02-08 16:05] VITALS: BP 129/71
--- NOTE | 2018-02-09 06:18 | DS ---
DISCHARGE SUMMARY: DATE OF ADMISSION: 02/07/18 DATE OF DISCHARGE: 02/08/18 PROVIDER: Mary Mello NP ATTENDING PHYSICIAN: Dr. Cami Vasquez.* (DICTATED BY MARY MELLO NP) PRIMARY CARE PROVIDER: Dr. Kerr. DISCHARGE DIAGNOSES: 1. Syncope, suspect vasovagal in the setting of viral illness. 2. Fever, suspect viral illness. HISTORY OF PRESENT ILLNESS AND HOSPITAL COURSE: Please see history and physical by Ephraim Davenport NP, for full admission details; but in summary, this is a 32-year- old male with no significant past medical history other than GERD and hiatal hernia, who presented to the emergency department on 02/06/18 for a syncopal episode. Mr. Valdes reported that 2 days prior, he developed a fever, body aches, and chills at home and felt fatigued, weak, and tired in which he reports he was in bed for approximately 24 hours, when he got up to make some food in the kitchen and had a syncopal episode. The syncopal episode was unwitnessed and his found him on the ground pale, diaphoretic, and very confused when he woke up. It is unclear the amount of time that he was unresponsive. The patient was brought to the emergency department. He did admit to having a headache without any neck stiffness, no photophobia. It was attempted in the emergency department to perform a lumbar puncture and which was performed by the ER physician and the patient had a syncopal episode during the lumbar puncture. Per the patient, he had intense pain in which he reports "like the needle hit the nerve" and the next thing he knew, he reports, he passed out. Per the emergency room nurse, she reports that the sheet heater went to 0 for a second, but there was no noted asystole. It was reported that they gave him chest compressions for 10 seconds; however, there was no pulse checked and per Cardiology, they believe he only had a syncopal episode and did not go asystole. The patient has had prior syncopal episodes in the setting of pain in the past several years ago. On admission, the patient had no leukocytosis. He had a noted ESR of 21 and a CRP of 63. His fever was noted to be 102.8. Chest x-ray was negative. He also underwent a brain CT, which was negative for acute pathology. He was admitted to the hospitalist service to telemetry where he was started on IV vancomycin and ceftriaxone awaiting blood cultures. The patient improved by his second day of hospitalization, in which he has not had a fever since admission and has been afebrile since. He has had no further syncopal episodes. No noted arrhythmias on telemetry monitoring. He has, however, been noted to have a heart rate between 32 and 70. He is asymptomatic to this. He was seen and evaluated by ad operations intern, Dr. Briscoe, who believes that this is normal for this patient and does not require any further workup. The patient underwent an echocardiogram, which was unremarkable. Per the patient, his baseline resting heart rate is around 50. The patient did have 3 troponins trended, which were all negative. The patient was also seen in consultation by infectious disease physician, Dr. Savage, who suspects a viral syndrome. The patient's blood cultures did come back negative for growth today and antibiotics were discontinued. The patient had Lyme serology and West Nile virus IgG sent. These are still pending at the time of dictation. He had a rapid strep, urinalysis, influenza A and B, and mono, which were all negative. The patient did report bilateral hand numbness and bilateral feet numbness intermittently for the past 6 months. He reports that occasionally he will have it in all 4 extremities and sometimes just in one. He reports that it is normally when he is resting or lying flat. He denies gait abnormalities. No muscle stiffness or rigidity. The patient was consulted by neurologist, Dr. Walker, who ordered an MRI of the brain with and without contrast, which was an unremarkable report. Dr. Walker does not feel that the tingling in his hands and feet is of significant concern. Today, the patient has been ambulating around the unit. He continues to feel slightly under the weather, but much better since admission and would like to be discharged home. He denies headache, chills, fever, body aches. He has been eating a regular diet and tolerating it well. No nausea, vomiting, abdominal pain, or diarrhea. No dizziness or presyncopal sensation with ambulation. I suspect that his symptoms are secondary to a viral illness with dehydration. At his baseline as well, he has a history of vasovagal episodes and this was most likely the case. Dr. Walker does not recommend any restrictions such as driving or with work. The discharge plan and summary were discussed with the patient and his at discharge. DISCHARGE MEDICATIONS: None. DISCHARGE PLAN: 1. The patient was instructed to follow up with Dr. Kerr. His primary care provider will call him with a date and time. They are aware that he was hospitalized. 2. Dr. Briscoe, ad operations intern, did state the patient could follow up with him in the office, but was not required. 3. The patient was instructed to return with any further or worsening symptoms. TIME SPENT: Approximately 60 minutes was spent on this discharge. MARY MELLO, MARYCARMEN [id number]/[facility] #: [id number] ANAM
== END 2018-02-08 17:06 | disposition home or self-care (01) ==
LOC: ED 20:18 → MEDTELE 02-07 00:17
PROVIDERS: ADMIT Internal Medicine; ATTEND Internal Medicine
DX: R55 Syncope and collapse (principal); R00.1 Bradycardia, unspecified; R50.9 Fever, unspecified; K21.9 Gastro-esophageal reflux disease without esophagitis; K44.9 Diaphragmatic hernia without obstruction or gangrene; R53.83 Other fatigue; R11.0 Nausea; R51 Headache
CPT/HCPCS: 36415; 70030; 70450; 70553; 71045; 80048; 80053; 81003; 81015; 82550; 83605; 83735; 84443; 84484; 85025; 85610; 85652; 85730; 86140; 86308; 86618; 86703; 86788; 86789; 87040; 87086; 87651; 93005; 93306; 95816; 96365; 96366; 96367; 96375; 96376; 99285; A9270-GY; A9579; G0378; J0696; J1100; J1885; J2405; J3370; J3475

== ENCOUNTER 2018-10-02 08:32 | Emergency (ER) | payer OTHER ==
[2018-10-02] MEDS ORDERED: Tetracaine 0.5% OPTH.SOL 4 ML* 1 DROP BTL ONE (09:03)
[2018-10-02] MEDS ORDERED: Fluorescein Sodium TOPICAL* 1 MG TEST STRIP ONE (09:03)
--- NOTE | 2018-10-02 09:08 | ED ---
Throat Pain/Nasal Congestion - HPI Summary HPI Summary: The patient is a 32 y/o M presenting to [facility] with a chief complaint of a foreign body sensation in the left eye starting at 0300 this morning. He states that he occasionally gets eyelashes stuck in his eye, so he usually just flushes them out a few times to get them out. However, he tried to flush the eye , and it feels like the particle is now wedged into the lateral corner of the eye. The pain is rated 7/10 in severity with opening of the eye, and closing the eye decreases the pain to 3/10 in severity. He additionally c/o sinus congestion from a respiratory cold that has been persistent. Hx of contacts or glasses. Nonsmoker, no EtOH, no substance use. - History of Current Complaint Chief Complaint: EDEyeProblem Time Seen by Provider: 10/02/18 08:47 Hx Obtained From: Patient Onset/Duration: Sudden Onset, Lasting Hours - since 0300 this morning, Still Present Severity: Moderate Associated Signs And Symptoms: Positive: FB Sensation, Sinus Discomfort Cough: None - Allergies/Home Medications Allergies/Adverse Reactions: Allergies Allergy/AdvReac Type Severity Reaction Status Date / Time No Known Allergies Allergy Verified 10/02/18 08:42 PMH/Surg Hx/FS Hx/Imm Hx Endocrine/Hematology History: Denies: Hx Diabetes Cardiovascular History: Reports: Hx Syncope Denies: Hx Hypertension, Hx Pacemaker/ICD History: Denies: Hx Renal Disease Sensory History: Reports: Hx Contacts or Glasses Denies: Hx Hearing Aid Opthamlomology History: Reports: Hx Contacts or Glasses Psychiatric History: Denies: Hx Panic Disorder - Surgical History Surgery Procedure, Year, and Place: Vasectomy, MCL and meniscus. - Immunization History Date of Tetanus Vaccine: UNKNOWN Infectious Disease History: No Infectious Disease History: Denies: Traveled Outside the [place] in Last 30 Days - Family History Known Family History: Positive: Diabetes Negative: Cardiac Disease, Hypertension - Social History Alcohol Use: None Hx Substance Use: No Substance Use Type: Reports: None Hx Tobacco Use: No Smoking Status (MU): Never Smoked Tobacco Do You Chew or Dip Tobacco: No Have You Chewed or Dipped Tobacco in the LAST YEAR: No Have You Smoked in the Last Year: No Review of Systems Positive: Other - pain in left eye with foreign body sensation Positive: Other - sinus congestion All Other Systems Reviewed And Are Negative: Yes Physical Exam - Summary Physical Exam Summary: VITAL SIGNS: Reviewed. GENERAL: Patient is a well-developed and nourished male who is lying comfortable in the stretcher. Patient is not in any acute respiratory distress. HEAD AND FACE: No signs of trauma. No ecchymosis, hematomas or skull depressions. No sinus tenderness. EYES: PERRLA, EOMI x 2. Conjunctival injection in left lower lid. No forging bodies. No nystagmus. EARS: Hearing grossly intact. Ear canals and tympanic membranes are within normal limits. MOUTH: Oropharynx within normal limits. NECK: Supple, trachea is midline, no adenopathy, no JVD, no carotid bruit, no c- spine tenderness, neck with full ROM. CHEST: Symmetric, no tenderness at palpation LUNGS: Clear to auscultation bilaterally. No wheezing or crackles. CVS: Regular rate and rhythm, S1 and S2 present, no murmurs or gallops appreciated. ABDOMEN: Soft, non-tender. No signs of distention. No rebound no guarding, and no masses palpated. Bowel sounds are normal. EXTREMITIES: FROM in all major joints, no edema, no cyanosis or clubbing. NEURO: Alert and oriented x 3. No acute neurological deficits. Speech is normal and follows commands. SKIN: Dry and warm. Triage Information Reviewed: Yes Vital Signs On Initial Exam: Initial Vitals Temp Pulse Resp BP Pulse Ox 97.2 F 53 14 138/77 100 10/02/18 08:38 10/02/18 08:38 10/02/18 08:38 10/02/18 08:38 10/02/18 08:38 Vital Signs Reviewed: Yes Diagnostics - Vital Signs Vital Signs Temp Pulse Resp BP Pulse Ox 10/02/18 08:38 97.2 F 53 14 138/77 100 - Laboratory Lab Statement: Any lab studies that have been ordered have been reviewed, and results considered in the medical decision making process. Re-Evaluation - Re-Evaluation First Eval Re-Evaluation Time: 09:20 Comment: I used tetracaine on the patient's left eye in order to use fluorescein to see if I could visualize any foriegn bodies. We discussed discharge after exploring the eye. EENT Course/Dx - Course Assessment/Plan: The patient is a 32 y/o M presenting to [facility] with a chief complaint of a foreign body sensation in the left eye starting at 0300 this morning. He states that he occasionally gets eyelashes stuck in his eye, so he usually just flushes them out a few times to get them out. However, he tried to flush the eye, and it feels like the particle is now wedged into the lateral corner of the eye. The pain is rated 7/10 in severity with opening of the eye, and closing the eye decreases the pain to 3/10 in severity. He additionally c/o sinus congestion from a respiratory cold that has been persistent. Hx of contacts or glasses. Nonsmoker, no EtOH, no substance use. In the ED course, I used tetracaine to visualize the entire eye. I did not visualize any foreign bodies, however the patient has injected conjunctiva in the lower left lid. There is no reuptake of fluorescein. Therefore, the patient was placed in prophylactic erythromycin ointment. The patient was given one Tylenol for pain, and he will be discharged home with follow-up with Dr. Childress from ophthalmology on Wednesday. The patient understands and agrees. He was instructed to return to the emergency department if he develops any other pain. He continues to have normal visual acuity and no photophobia. - Diagnoses Provider Diagnoses: Foreign body in eyeball, left Discharge - Sign-Out/Discharge Documenting (check all that apply): Patient Departure - Patient will be discharged home. Patient Received Moderate/Deep Sedation with Procedure: No - Discharge Plan Condition: Stable Disposition: HOME Prescriptions: Acetaminop/Codeine 30 MG TAB* [Tylenol/Codeine 30 MG TAB*] 1 tab PO Q8H PRN #10 tab MDD 4 PRN Reason: Pain Patient Education Materials: Eye Foreign Body (ED) Referrals: Nick Kerr MD [Primary Care Provider] - Wallace Childress MD [Medical Doctor] - 3 Days Additional Instructions: Please take medications as prescribed. Follow up with Dr. Childress in 2-3 days. RETURN TO THE EMERGENCY DEPARTMENT FOR ANY NEW OR WORSENING SYMPTOMS. - Billing Disposition and Condition Condition: STABLE Disposition: Home - Attestation Statements Document Initiated by Scribe: Yes Documenting Scribe: Poly Bell Provider For Whom Scribe is Documenting (Include Credential): Dr. Bruce Roman MD Scribe Attestation: I, Poly Bell, scribed for Dr. Bruce Roman MD on 10/02/18 at 1723. Scribe Documentation Reviewed: Yes Provider Attestation: The documentation as recorded by the scribe, Poly Bell accurately reflects the service I personally performed and the decisions made by me, Dr. Bruce Roman MD Status of Scribe Document: Ready
[2018-10-02] MEDS ORDERED: Acetaminophen / Codeine* #3 (300 MG/30 MG) TAB PO ONE (09:32)
[2018-10-02] MEDS ORDERED: Erythromycin TOPICAL GEL* 30 GM TUBE TOPICAL ONE (09:35)
[2018-10-02] MEDS ORDERED: Erythromycin OPTH OINT* APPLIC OINT LEFT EYE ONE (10:15)
[2018-10-02 10:25] VITALS: BP 127/75
== END 2018-10-02 10:21 | disposition home or self-care (01) ==
LOC: ED 08:32
DX: H57.89 Other specified disorders of eye and adnexa (principal); R09.81 Nasal congestion
CPT/HCPCS: 99282; A9270-GY

== ENCOUNTER 2021-01-10 21:37 | Observation (INO) ==
[2021-01-10] MEDS ORDERED: NS 0.9% 1000 ml BAG 1,000 ML IV ONE (22:14)
[2021-01-10 23:03] LABS: Venous Bicarbonate HCO3 20.8 mmol/L (24-28)
[2021-01-10 23:08] LABS: ABS Lymphocytes 1.1 10^3/ul (1.0-4.8); ABS Monocytes 0.8 10^3/ul (0-0.8); Eosinophil % 0.5 %; Hematocrit 41 % (42-52); Hemoglobin 14.2 g/dL (14.0-18.0); Lymphocyte % 16.3 %; Mean Corpuscular HGB Conc 35 g/dL (31-36); Mean Corpuscular Hemoglobin 30 pg (27-31); Mean Corpuscular Volume 85 fL (80-94); Mean Platelet Volume 8.3 fL (7.4-10.4); Nucleated Red Blood Cells % 0.1; Platelet Count 209 10^3/uL (150-450); Red Cell Distribution Width 13 % (10-15)
[2021-01-10 23:24] LABS: Activated Partial Thrombo Time 30.5 seconds (26.0-38.0); INR 1.25 (0.86-1.15)
[2021-01-10 23:26] LABS: ALT 30 U/L (7-52); Albumin 3.8 g/dL (3.2-5.2); Albumin/Globulin Ratio 1.1 (1-3); Alkaline Phosphatase 66 U/L (35-149); Blood Urea Nitrogen 9 mg/dL (6-24); C Reactive Protein 144.82 mg/L (<8.01); CO2 Carbon Dioxide 28 mmol/L (22-32); Calcium 8.3 mg/dL (8.6-10.3); Chloride 101 mmol/L (101-111); EGFR African American 110.6 (>60); EGFR Non-African American 91.4 (>60); Globulin 3.4 g/dL (2-4); Glucose 114 mg/dL (70-100); Sodium 136 mmol/L (135-145); Total Protein 7.2 g/dL (6.4-8.9)
[2021-01-10 23:28] LABS: Influenza A Molecular Negative (Negative); Influenza B Molecular Negative (Negative)
[2021-01-11] LABS: Troponin I 0.04 ng/mL (<0.03)
[2021-01-11 00:02] LABS: Anion Gap 7 mmol/L (2-11); Ferritin 683.2 ng/mL (24-336)
[2021-01-11 01:11] LABS: LDH 394 U/L (140-271)
[2021-01-11] MEDS ORDERED: Lactated Ringers 1000 ml BAG 1,000 ML IV ONE (01:11)
[2021-01-11] MEDS ORDERED: Iohexol 350 (CONTRAST) 500 ML MDV IV ONE (01:38)
[2021-01-11 02:03] LABS: Erythrocyte Sed Rate 63 mm/Hr (0-14)
[2021-01-11 02:39] LABS: Potassium Redraw 3.6 mmol/L (3.5-5.0)
[2021-01-11 05:06] LABS: Troponin I 0.03 ng/mL (<0.03)
[2021-01-11] MEDS ORDERED: Enoxaparin 40 MG/0.4 ML SYR SUBCUT SCH (06:00)
[2021-01-11 09:05] LABS: Troponin I 0.03 ng/mL (<0.03)
[2021-01-11 12:41] VITALS: BP 122/51
[2021-01-11] MEDS ORDERED: guaiFENesin/CODIENE 100mg/10mg 5 ML UDC PO PRN (13:18)
== END 2021-01-11 15:15 | disposition home or self-care (01) ==
LOC: ED 21:37 → INTOOBSV 01-11 03:59 → SUATTDRO 01-11 03:59 → MED 01-11 03:59
PROVIDERS: ADMIT Internal Medicine; ATTEND Internal Medicine